=== PATIENT | female | born 1940 | race Caucasian/White ===

== ENCOUNTER 2023-05-05 09:46 | Inpatient (IN) | payer MEDICARE, OTHER ==
[2023-05-05 11:00] LABS: #Basophils 0.1 10x3/uL (0.0-0.2); #Eosinphils 0.4 10x3/uL (0.0-0.5); #Monocytes 0.8 10x3/uL (0.0-1.1); #Neutrophils 7.5 10x3/uL (1.5-8.4); %Basophils 0.7 % (0.0-2.0); %Eosinophils 3.8 % (0.0-6.0); %Lymphocytes 13.9 % (18.0-47.0); %Monocytes 8.1 % (0.0-10.0); %Neutrophils 73.3 % (40.0-75.0); Hematocrit 39.4 % (34.9-44.5); Hemoglobin 12.7 g/dL (12.0-15.5); Mean Corpuscular HGB CONC 32.2 g/dL (32.0-36.0); Mean Corpuscular Volume 83.7 fl (81.6-98.3); Mean Platelet Volume 9.5 fl (7.4-10.4); Platelet Count 341 10x3/uL (150-450); RBC Distribution Width 14.2 % (11.5-14.5); Red Blood Cell (RBC) Count 4.71 10x6/uL (3.90-5.03); White Blood Cell (WBC) Count 10.2 10x3/uL (3.5-10.5)
[2023-05-05 11:08] LABS: ALT (SGPT) 13 U/L (8-55); AST (SGOT) 17 U/L (5-34); Albumin 3.5 g/dL (3.4-4.8); Alkaline Phosphatase 73 U/L (40-110); Anion Gap 13 mmol/L (10-20); BUN (Urea Nitrogen) 21 mg/dL (9.8-20.1); Bilirubin, Total 0.5 mg/dL (0.2-1.2); Calc. Creatinine Clearance 0 mL/min (70-130); Calcium 9.3 mg/dL (7.8-10.44); Carbon Dioxide 25 mmol/L (23-31); Chloride 107 mmol/L (98-107); Estimated GFR 58; Globulin 2.6 g/dL (2.4-3.5); Glucose 111 mg/dL (83-110); Potassium 3.8 mmol/L (3.5-5.1); Protein, Total 6.1 g/dL (5.8-8.1); Sodium 141 mmol/L (136-145)
[2023-05-05 11:09] LABS: Bilirubin 1+ (Negative); Blood, Urine Negative (Negative); Clarity Clear (Clear); Glucose, Urine (Dipstick) Normal (Negative); Ketone, Urine 5 mg/dL (Negative); Leukocyte Negative (Negative); Nitrite Negative (Negative); Protein, Urine (Dipstick) Negative (Neg-Trace); Specific Gravity, Urine 1.025 (1.005-1.030); Urobilinogen Normal mg/dL (Less than 2)
[2023-05-05 11:19] LABS: CAUTI Indications for Culture Dysuria,urgency,freq; RBC/HPF 0-3 HPF (0-3); Squamous Epithelial 0-3 HPF (0-3); WBC/HPF 0-3 HPF (0-3)
[2023-05-05 11:21] LABS: Bacteria/HPF Rare-Few HPF (None Seen)
[2023-05-05 11:22] LABS: Urine Culture Reflex No No
[2023-05-05] MEDS ORDERED: Ondansetron ODT 4 MG TAB PO PRN (15:46)
[2023-05-05] MEDS ORDERED: Dextrose 50% Abboject 50 ML SYRINGE SLOW IVP PRN (15:46)
[2023-05-05] MEDS ORDERED: Acetaminophen 325 MG TAB PO PRN (15:46)
[2023-05-05] MEDS ORDERED: Ondansetron PF 4 MG/2 ML Vial IVP PRN (15:46)
[2023-05-05] MEDS ORDERED: HumaLOG 300 UNITS/3 ML VIAL SC PRN ×2 (15:46)
[2023-05-05] MEDS ORDERED: Dextrose 5% in Water 1,000 ML IV PRN (15:46)
[2023-05-05] MEDS ORDERED: Glucagon 1 MG/ML KIT IM PRN (15:46)
[2023-05-05] MEDS ORDERED: Electrolyte Replacement Protocol 1 EACH FS SCH (16:00)
[2023-05-05 16:36] LABS: Lactic Acid 0.9 mmol/L (0.5-2.2)
[2023-05-05 16:39] LABS: Magnesium 1.6 mg/dL (1.6-2.6)
[2023-05-05 17:08] VITALS: BMI 24.7
[2023-05-05] MEDS: Lactated Ringer's 1,000 ML IV SCH (17:43)
[2023-05-05] MEDS: Donepezil HCl 5 MG TAB PO SCH (20:04)
[2023-05-05] MEDS: Hydrocortisone 10 mg Tablet PO SCH (20:04)
[2023-05-05] MEDS: Atorvastatin Calcium 40 MG TAB PO SCH (20:04)
[2023-05-05] MEDS ORDERED: Magnesium 2 GM/50 ML(in water) 2 GM in Premix Bag 1 BAG IVPB SCH (21:00)
[2023-05-06 05:16] LABS: #Basophils 0.1 10x3/uL (0.0-0.2); #Eosinphils 0.4 10x3/uL (0.0-0.5); #Monocytes 1.1 10x3/uL (0.0-1.1); #Neutrophils 8.5 10x3/uL (1.5-8.4); %Basophils 0.4 % (0.0-2.0); %Eosinophils 3.5 % (0.0-6.0); %Lymphocytes 14.4 % (18.0-47.0); %Monocytes 9.1 % (0.0-10.0); %Neutrophils 72.2 % (40.0-75.0); Hematocrit 36.3 % (34.9-44.5); Hemoglobin 11.9 g/dL (12.0-15.5); Mean Corpuscular HGB CONC 32.8 g/dL (32.0-36.0); Mean Corpuscular Hemoglobin 26.9 pg (27.0-33.0); Mean Corpuscular Volume 81.9 fl (81.6-98.3); Mean Platelet Volume 9.2 fl (7.4-10.4); Platelet Count 314 10x3/uL (150-450); RBC Distribution Width 13.4 % (11.5-14.5); Red Blood Cell (RBC) Count 4.43 10x6/uL (3.90-5.03); White Blood Cell (WBC) Count 11.8 10x3/uL (3.5-10.5)
[2023-05-06 05:29] LABS: Anion Gap 16 mmol/L (10-20); BUN (Urea Nitrogen) 13 mg/dL (9.8-20.1); Calc. Creatinine Clearance 62 mL/min (70-130); Calcium 9.1 mg/dL (7.8-10.44); Carbon Dioxide 22 mmol/L (23-31); Chloride 103 mmol/L (98-107); Estimated GFR 81; Glucose 88 mg/dL (83-110); Magnesium 1.9 mg/dL (1.6-2.6); Potassium 3.5 mmol/L (3.5-5.1); Sodium 137 mmol/L (136-145)
[2023-05-06] MEDS: Lactated Ringer's 1,000 ML IV SCH (05:38)
[2023-05-06] MEDS: Levothyroxine Sodium 75 MCG TAB PO SCH (05:38)
[2023-05-06] MEDS: Aspirin 81 mg Enteric Coated Tablet PO SCH (08:54)
[2023-05-06] MEDS: Hydrocortisone 10 mg Tablet PO SCH ×2 (08:54→23:21)
[2023-05-06] MEDS: Losartan Potassium 50 MG TAB PO SCH (08:54)
[2023-05-06] MEDS: Clopidogrel Bisulfate 75 MG TAB PO SCH (08:55)
[2023-05-06] MEDS: Potassium Chloride 10 MEQ TAB PO SCH (08:56)
[2023-05-06] MEDS ORDERED: Magnesium 2 GM/50 ML(in water) 2 GM in Premix Bag 1 BAG IVPB SCH (09:00)
[2023-05-06] MEDS ORDERED: Potassium Chloride 20 MEQ TAB PO SCH (09:00)
[2023-05-06] MEDS ORDERED: Hydrochlorothiazide 25 MG TAB PO SCH (09:00)
[2023-05-06] MEDS: Atorvastatin Calcium 40 MG TAB PO SCH (23:22)
[2023-05-06] MEDS: Escitalopram Oxalate 10 mg Tablet PO SCH (23:22)
[2023-05-06] MEDS: Donepezil HCl 5 MG TAB PO SCH (23:22)
[2023-05-07] MEDS: Lactated Ringer's 1,000 ML IV SCH ×3 (01:50→09:12)
[2023-05-07] MEDS: Levothyroxine Sodium 75 MCG TAB PO SCH (06:42)
[2023-05-07] MEDS: Hydrocortisone 10 mg Tablet PO SCH ×2 (09:13→21:49)
[2023-05-07] MEDS: Losartan Potassium 50 MG TAB PO SCH (09:13)
[2023-05-07] MEDS: NIFEdipine XL 30 MG TAB PO SCH (09:13)
[2023-05-07] MEDS: Clopidogrel Bisulfate 75 MG TAB PO SCH (09:13)
[2023-05-07] MEDS: Aspirin 81 mg Enteric Coated Tablet PO SCH (09:13)
[2023-05-07] MEDS: Potassium Chloride 10 MEQ TAB PO SCH (09:14)
[2023-05-07] MEDS ORDERED: hydrALAZINE 20 MG/ML VIAL SLOW IVP PRN (15:00)
[2023-05-07] MEDS: Donepezil HCl 5 MG TAB PO SCH (21:48)
[2023-05-07] MEDS: Escitalopram Oxalate 10 mg Tablet PO SCH (21:48)
[2023-05-07] MEDS: Atorvastatin Calcium 40 MG TAB PO SCH (21:49)
[2023-05-08 04:59] LABS: Hematocrit 38.2 % (34.9-44.5); Hemoglobin 12.4 g/dL (12.0-15.5); Mean Corpuscular HGB CONC 32.5 g/dL (32.0-36.0); Mean Corpuscular Hemoglobin 27.2 pg (27.0-33.0); Mean Corpuscular Volume 83.8 fl (81.6-98.3); Mean Platelet Volume 9.4 fl (7.4-10.4); Platelet Count 311 10x3/uL (150-450); RBC Distribution Width 13.2 % (11.5-14.5); Red Blood Cell (RBC) Count 4.56 10x6/uL (3.90-5.03); White Blood Cell (WBC) Count 10.3 10x3/uL (3.5-10.5)
[2023-05-08 05:07] LABS: Anion Gap 16 mmol/L (10-20); BUN (Urea Nitrogen) 10 mg/dL (9.8-20.1); Calc. Creatinine Clearance 68 mL/min (70-130); Calcium 9.2 mg/dL (7.8-10.44); Carbon Dioxide 21 mmol/L (23-31); Chloride 102 mmol/L (98-107); Estimated GFR 86; Glucose 107 mg/dL (83-110); Potassium 3.9 mmol/L (3.5-5.1); Sodium 135 mmol/L (136-145)
[2023-05-08] MEDS: Levothyroxine Sodium 75 MCG TAB PO SCH (06:06)
[2023-05-08] MEDS ORDERED: Polyethylene Glycol 3350 17 GM Packet PO PRN (08:18)
[2023-05-08] MEDS ORDERED: Docusate 100 MG CAP PO PRN (08:18)
[2023-05-08] MEDS: Hydrocortisone 10 mg Tablet PO SCH ×2 (08:32→20:40)
[2023-05-08] MEDS: NIFEdipine XL 30 MG TAB PO SCH (08:32)
[2023-05-08] MEDS: Losartan Potassium 50 MG TAB PO SCH (08:32)
[2023-05-08] MEDS: Aspirin 81 mg Enteric Coated Tablet PO SCH (08:32)
[2023-05-08] MEDS: Potassium Chloride 10 MEQ TAB PO SCH (08:32)
[2023-05-08] MEDS: Clopidogrel Bisulfate 75 MG TAB PO SCH (08:32)
[2023-05-08] MEDS: Atorvastatin Calcium 40 MG TAB PO SCH (20:40)
[2023-05-08] MEDS: Donepezil HCl 5 MG TAB PO SCH (20:40)
[2023-05-08] MEDS: Escitalopram Oxalate 10 mg Tablet PO SCH (20:40)
[2023-05-09] MEDS: Levothyroxine Sodium 75 MCG TAB PO SCH (05:19)
[2023-05-09] MEDS: NIFEdipine XL 30 MG TAB PO SCH (08:27)
[2023-05-09] MEDS: Hydrocortisone 10 mg Tablet PO SCH ×2 (08:27→21:47)
[2023-05-09] MEDS: Clopidogrel Bisulfate 75 MG TAB PO SCH (08:27)
[2023-05-09] MEDS: Losartan Potassium 50 MG TAB PO SCH (08:27)
[2023-05-09] MEDS: Potassium Chloride 10 MEQ TAB PO SCH (08:27)
[2023-05-09] MEDS: Aspirin 81 mg Enteric Coated Tablet PO SCH (08:27)
[2023-05-09] MEDS ORDERED: Docusate 100 MG CAP PO PRN (08:37)
[2023-05-09] MEDS ORDERED: Polyethylene Glycol 3350 17 GM Packet PO PRN (08:37)
[2023-05-09] MEDS: Escitalopram Oxalate 10 mg Tablet PO SCH (21:47)
[2023-05-09] MEDS: Atorvastatin Calcium 40 MG TAB PO SCH (21:47)
[2023-05-09] MEDS: Donepezil HCl 5 MG TAB PO SCH (21:48)
[2023-05-10] MEDS: Levothyroxine Sodium 75 MCG TAB PO SCH (06:38)
[2023-05-10] MEDS: Potassium Chloride 10 MEQ TAB PO SCH (10:05)
[2023-05-10] MEDS: NIFEdipine XL 30 MG TAB PO SCH (10:05)
[2023-05-10] MEDS: Hydrocortisone 10 mg Tablet PO SCH ×2 (10:05→21:27)
[2023-05-10] MEDS: Losartan Potassium 50 MG TAB PO SCH (10:06)
[2023-05-10] MEDS: Aspirin 81 mg Enteric Coated Tablet PO SCH (10:06)
[2023-05-10] MEDS: Clopidogrel Bisulfate 75 MG TAB PO SCH (10:06)
[2023-05-10] MEDS: Atorvastatin Calcium 40 MG TAB PO SCH (21:27)
[2023-05-10] MEDS: Escitalopram Oxalate 10 mg Tablet PO SCH (21:27)
[2023-05-10] MEDS: Donepezil HCl 5 MG TAB PO SCH (21:29)
[2023-05-11] MEDS: Levothyroxine Sodium 75 MCG TAB PO SCH (05:47)
[2023-05-11] MEDS: Potassium Chloride 10 MEQ TAB PO SCH (08:26)
[2023-05-11] MEDS: Aspirin 81 mg Enteric Coated Tablet PO SCH (08:27)
[2023-05-11] MEDS: Hydrocortisone 10 mg Tablet PO SCH (08:27)
[2023-05-11] MEDS: Losartan Potassium 50 MG TAB PO SCH (08:27)
[2023-05-11] MEDS: NIFEdipine XL 30 MG TAB PO SCH (08:27)
[2023-05-11] MEDS: Clopidogrel Bisulfate 75 MG TAB PO SCH (08:27)
[2023-05-11 08:40] VITALS: BP 152/77; TEMP 97.2
== END 2023-05-11 11:04 | DRG 948 ==
LOC: CSHERS 09:46 → CSHIMCU 14:45 → CSHTELE 21:37 → OBSVTOIN 05-07 13:08
PROVIDERS: ADMIT Hospitalist; ATTEND Internal Medicine
DX: R53.1 Weakness (principal); E23.0 Hypopituitarism; E86.0 Dehydration; I10 Essential (primary) hypertension; E78.5 Hyperlipidemia, unspecified; E11.9 Type 2 diabetes mellitus without complications; I48.0 Paroxysmal atrial fibrillation; F03.90 Unspecified dementia, unspecified severity, without behavioral disturbance, psychotic disturbance, mood disturbance, and anxiety; Z86.73 Personal history of transient ischemic attack (TIA), and cerebral infarction without residual deficits; Z90.49 Acquired absence of other specified parts of digestive tract; Z98.890 Other specified postprocedural states; Z79.899 Other long term (current) drug therapy
CPT/HCPCS: 36415; 36416; 51701; 80048; 80053; 81001; 83605; 83735; 84484; 85025; 85027; 87040; 94760; 94762; 96360; 96361; 96372; 96374; G0378; J1650; J1815; J3475; J7120